=== PATIENT | female | born 1945 | race Caucasian/White ===

== ENCOUNTER 2022-05-16 00:42 | Day surgery (SDC) | payer MEDICARE, SELFPAY ==
[2022-05-03 11:42] VITALS: BMI 28.5
[2022-05-16 08:52] VITALS: BP 151/61; PULSE 63; RESP 17; TEMP 36.1; O2SAT 100; BMI 27.8
[2022-05-16] MEDS: GENTAMICIN 80MG/SOD CHL 50 ML 80 MG/50 ML BAG 100 MG IVPB (09:10)
[2022-05-16] MEDS: LACTATED RINGERS 1,000 ML 150 ML IV CONT (09:14)
--- NOTE | 2022-05-16 09:28 | P.PNAN_ITS ---
Anes - Initial Pre Proc Eval Procedure: Operation Date: 05/16/22 10:15 Proposed Procedures p Screening Colonoscopy - Angel Godinez MD Date/Time: 05/16/22 09:28 Surgeon: Angel Godinez MD Pre Op Diagnosis: Hx of colon polyps Patient Data Age: 77 Gender: F Height: 1.6 m Weight: 71.3 kg Last Vital Signs Temp 97 F L 05/16/22 08:52 Pulse 63 05/16/22 08:52 Resp 17 05/16/22 08:52 BP 151/61 H 05/16/22 08:52 Pulse Ox 100 05/16/22 08:52 O2 Del Method Room Air 05/16/22 08:52 Allergies Allergy/AdvReac Type Severity Reaction Status Date / Time adhesive tape Allergy Rash Verified 05/16/22 08:50 Sulfa (Sulfonamide AdvReac Vomiting Verified 05/16/22 08:50 Antibiotics) Home Medications Medication Instructions Recorded Confirmed Type amiodarone 200 mg tablet 200 mg PO 3XW 05/03/22 05/16/22 History amlodipine 10 mg tablet 5 mg PO DAILY 05/03/22 05/16/22 History aspirin 81 mg tablet 81 mg PO DAILY 05/03/22 05/16/22 History cabozantinib 20 mg tablet 20 mg PO DAILY 05/03/22 05/16/22 History (Cabometyx) furosemide 40 mg tablet 40 mg PO DAILY 05/03/22 05/16/22 History levothyroxine 50 mcg tablet 50 mcg PO DAILY 05/03/22 05/16/22 History metoprolol tartrate 25 mg tablet 25 mg PO BID 05/03/22 05/16/22 History Patient hx anesthesia problems: none Family hx anesthesia problems: none Results Review: All pre-operative results and documents have been reviewed as part of the pre- operative evaluation. [facility] Social History Social History Smoking status: Never smoker Alcohol intake: never Substance use: never Substance use type: does not use Living arrangements: alone Spiritual care concerns: No Anes - Eval Final PreProcedure Day of Procedure 05/16/22 09:28 Patient weight: normal Heart: regular rate and rhythm Lungs: clear to auscultation Airway: Mallampati scale class II Neurological: alert and oriented Last oral intake: >/= 8 hours ASA classification: III Emergent: no Anesthetic plan: proceed Anesthesia type and monitoring: general GIVS and standard monitoring Results Review: All pre-operative results and documents have been reviewed as part of the pre- operative evaluation. Informed Consent: The patient's anesthetic plan and its attendant risks and benefits were discussed with the patient/family/POA. Questions were solicited and answers provided to the satisfaction of the patient/family/POA.
[2022-05-16] MEDS: AMPICILLIN 2 GM/NS 100 ML 2 GM/100 ML BAG IVPB (09:37)
--- NOTE | 2022-05-16 09:45 | PM.HPGS ---
History of Present Illness History of Present Illness Consent: Risks, benefits, and alternatives have been discussed and questions answered. Patient agrees to proceed with procedure. Chief complaint: Hx of colon polyps Narrative: Claudia Laureano is a 77 year old female with colon polyps in 2017 Review of Systems Constitutional: Constitutional: Denies headache(s) and Denies weakness Eyes: Eyes: Denies blurry vision ENT: Reports Normal hearing present, Denies headache(s) and Denies neck pain Cardiovascular: Cardiovascular: Denies chest pain and Denies dyspnea Respiratory: Respiratory: Denies dyspnea Gastrointestinal: Gastrointestinal: Reports no additional gastrointestinal complaints Genitourinary: Genitourinary: Denies dysuria Musculoskeletal: Musculoskeletal: Denies neck pain Integumentary/Breasts: Skin/Breast: Denies dry skin Neurologic: Reports Normal hearing present, Denies headache(s) and Denies weakness Psychiatric: Psychiatric: Denies anxiety Endocrine: Endocrine: Denies change in body appearance Hematologic/Lymphatic: Hematologic/Lymphatic: Denies easy bleeding Allergic/Immunologic: Allergic/Immunologic: Denies urticaria PMF Past Medical History Medical History (Updated 05/16/22 @ 09:45 by Angel Godinez MD) Adenomatous colon polyp Social History Social History Smoking status: Never smoker Alcohol intake: never Substance use: never Substance use type: does not use Living arrangements: alone Spiritual care concerns: No Meds Home Medications and Allergies Home Medications Medication Instructions Recorded Confirmed Type amiodarone 200 mg tablet 200 mg PO 3XW 05/03/22 05/16/22 History amlodipine 10 mg tablet 5 mg PO DAILY 05/03/22 05/16/22 History aspirin 81 mg tablet 81 mg PO DAILY 05/03/22 05/16/22 History cabozantinib 20 mg tablet 20 mg PO DAILY 05/03/22 05/16/22 History (Cabometyx) furosemide 40 mg tablet 40 mg PO DAILY 05/03/22 05/16/22 History levothyroxine 50 mcg tablet 50 mcg PO DAILY 05/03/22 05/16/22 History metoprolol tartrate 25 mg tablet 25 mg PO BID 05/03/22 05/16/22 History Allergies Allergy/AdvReac Type Severity Reaction Status Date / Time adhesive tape Allergy Rash Verified 05/16/22 08:50 Sulfa (Sulfonamide AdvReac Vomiting Verified 05/16/22 08:50 Antibiotics) Vital Signs Vital Signs - 24 hr 05/16/22 08:52 Temperature 97 F L Pulse Rate 63 Respiratory Rate 17 Blood Pressure 151/61 H Pulse Oximetry 100 Oxygen Delivery Room Air Exam Const: General: comfortable and no acute distress HENMT: Face/Nose/Sinus: Normal nares present Eyes: General: appearance normal, both eyes and all related structures Neck: Neck: no JVD Resp: Auscultation: clear to auscultation bilaterally Cardio: Rate: regular rate Rhythm: regular rhythm GI: Inspection: non-distended GI Palp: Yes Soft to palpation Skin: General skin exam: normal color Neuro: General: gait normal Speech: normal speech Extrem: General: normal to inspection Psych: Mental Status: mental status grossly normal Assessment and Plan Assessment and plan (1) Adenomatous colon polyp: Code(s): D12.6 - Benign neoplasm of colon, unspecified Status: Acute Assessment and Plan: colonoscopy
[2022-05-16 10:19] VITALS: BP 136/67; PULSE 58; RESP 18; O2SAT 100
[2022-05-16 10:29] VITALS: BP 137/64; PULSE 55; RESP 23; O2SAT 100
[2022-05-16 10:39] VITALS: BP 147/64; PULSE 53; RESP 18; O2SAT 100
== END 2022-05-16 10:51 | disposition home or self-care (01) ==
PROVIDERS: PCP Internal Medicine; Visit Provider Internal Medicine Gastroenterology
PROC: 0DJD8ZZ Inspection of Lower Intestinal Tract, Via Natural or Artificial Opening Endoscopic (ICD-10-PCS; CPT 45378; principal; 2022-05-16 10:15)
DX: Z12.11 Encounter for screening for malignant neoplasm of colon (principal); K57.30 Diverticulosis of large intestine without perforation or abscess without bleeding; K64.8 Other hemorrhoids; Z86.010 Personal history of colon polyps; Z79.82 Long term (current) use of aspirin
CPT/HCPCS: G0105; J0290; J1580; J2704; J7120